=== PATIENT | male | born 1960 | race Caucasian/White ===

== ENCOUNTER → 2020-10-26 | Outpatient (CLI) | payer OTHER ==
[~2020-10-26] MED LIST: ASPI-266 PO; DIAZ10TA3 PO; DICL75TA2 PO; ITRA100C PO; METF-397 PO; NFPRILOC40 PO; OXYC1TAB95 PO; RANI150C11 PO; SIMV20TA3 PO; TRAM50TA2 PO
--- NOTE | 2020-10-26 15:52 | Diagnostic Imaging Report ---
INDICATION: History of renal calculi. COMPARISON: None. FINDINGS: Single frontal supine radiographic view of the abdomen was obtained. Multiple bulky extraosseous calcifications are seen projecting over the inferior pole of the right kidney. Several other smaller extraosseous calcifications are also seen projecting over the superior pole of the right kidney and both superior and inferior poles of the left kidney. Indwelling bilateral common iliac stents are noted. No unexpected radiopaque foreign bodies are seen. Small bowel loops are nondistended. There is no large collection of free peritoneal air. Osseous structures show no acute abnormalities. IMPRESSION: 1. Findings suggestive of bilateral renal calculi, largest of which are seen projecting over the inferior pole the right kidney. Correlation with CT may be of benefit. 2. Nonobstructive small bowel gas pattern. Dictated by: Dictated on workstation # [id number]
== END ==
LOC: RAD 14:00
PROVIDERS: ATTEND Urology
DX: N20.2 Calculus of kidney with calculus of ureter (principal)
CPT/HCPCS: 74018